=== PATIENT | female | born 1985 | race Caucasian/White ===

== ENCOUNTER 2016-11-02 15:33 | Emergency (ER) | payer SELFPAY ==
[~2016-11-02] VITALS: Wt 72.0 kg
[~2016-11-02 15:33] MED LIST: DOXY100T20 PO; GENT5DRO28 BOTH EYES
== END 2016-11-02 21:00 | disposition left against medical advice (07) ==
LOC: E/R 15:33
DX: Z53.21 Procedure and treatment not carried out due to patient leaving prior to being seen by health care provider (principal)

== ENCOUNTER 2018-06-27 08:26 | Emergency (ER) | END 2018-06-27 10:15 | disposition home or self-care (01) ==

== ENCOUNTER 2018-12-28 18:59 | Emergency (ER) | payer BC ==
[~2018-12-28] VITALS: Wt 109.2 kg
[~2018-12-28 18:59] MED LIST changes: +CEPH-443 PO; +CYCL10TA7 PO; +GUAI-637 PO; +NAPR-985 PO
[2018-12-28 19:07] VITALS: BP 142/98; PULSE 78; RESP 18
[2018-12-28] MEDS ORDERED: KETOROLAC 60 MG INJ IM STA (21:40)
[2018-12-28] MEDS ORDERED: TRAM50TA2 PO (21:51)
[2018-12-28] MEDS ORDERED: CYCL10TA7 PO (21:51)
[2018-12-28] MEDS ORDERED: IBUP800T48 PO (21:51)
--- NOTE | 2018-12-28 21:55 | ERD ---
ER Documentation Chief Complaint Chief Complaint LOWER LEFT BACK PAIN X'S 2 DAYS HPI 33-year-old female presents with right lower back pain for last 2 days. She has 3 children at home and may have started after taking care of her children. She denies any fall or history of trauma. She denies any bowel or bladder incontinence, fevers, deficits. She has a history of similar episodes. She did take some ibuprofen obtained from her friend which did help with the pain. Pain is described as 8 out of 10, without radiation worse with movement and decreased with rest. Pain is sharp in nature. ROS All systems reviewed and are negative except as per history of present illness. Medications Home Meds Active Scripts Cyclobenzaprine Hcl* (Cyclobenzaprine Hcl*) 10 Mg Tablet, 10 MG PO TID, #15 TAB Prov:CELESTE BUENO MD 12/28/18 Ibuprofen* (Motrin*) 800 Mg Tab, 800 MG PO Q6, #20 TAB Prov:CELESTE BUENO MD 12/28/18 Tramadol HCl (Tramadol HCl) 50 Mg Tablet, 50 MG PO Q4 PRN for PAIN, #15 TAB Prov:CELESTE BUENO MD 12/28/18 Guaifenesin* (Robitussin*) 100 Mg/5 Ml Syrup, 200 MG PO Q6H PRN for COUGH for 5 Days, ML Prov:ANTHONY ARTEAGA PA-C 06/27/18 Cyclobenzaprine Hcl* (Cyclobenzaprine Hcl*) 10 Mg Tablet, 10 MG PO QHS, #7 TAB Prov:ANTHONY ARTEAGA PA-C 06/27/18 Naproxen* (Naprosyn*) 500 Mg Tablet, 500 MG PO BID PRN for PAIN AND/OR INFLAMMATION, #30 TAB Prov:ANTHONY ARTEAGA PA-C 06/27/18 Cephalexin* (Keflex*) 500 Mg Capsule, 500 MG PO BID for 7 Days, CAP Prov:ANTHONY ARTEAGA PA-C 06/27/18 Doxycycline Hyclate* (Doxycycline Hyclate*) 100 Mg Tablet.dr, 100 MG PO BID for 7 Days, TAB Prov:CELESTE BUENO MD 05/01/16 Gentamicin Sulfate* (Gentamicin Sulfate* Ophth) 0.3% - 5 Ml Drops, 1 DROP BOTH EYES QID for 7 Days, EA Prov:CELESTE BUENO MD 05/01/16 Reported Medications [none] No Conflict Check 06/13/12 Allergies Allergies: Coded Allergies: No Known Allergies (Verified Allergy, Mild, 06/13/12) PMhx/Soc History of Surgery: Yes ( x3 and gall bladder removal) Anesthesia Reaction: No Hx Neurological Disorder: No Hx Respiratory Disorders: Yes (Hx asthma) Hx Cardiac Disorders: No Hx Psychiatric Problems: No Hx Miscellaneous Medical Probl: No Hx Alcohol Use: No Hx Substance Use: No Hx Tobacco Use: No FmHx Family History: No diabetes, No coronary disease, No other Physical Exam Vitals Vital Signs Date Temp Pulse Resp B/P (MAP) Pulse Ox O2 O2 Flow FiO2 Time Delivery Rate 12/28/18 98.7 78 18 142/98 98 19:07 (113) Physical Exam Const: No acute distress Head: Atraumatic Eyes: Normal Conjunctiva ENT: Normal External Ears, Nose and Mouth. Neck: Full range of motion. No meningismus. Resp: Clear to auscultation bilaterally Cardio: Regular rate and rhythm, no murmurs Abd: Soft, non tender, non distended. Normal bowel sounds Skin: No petechiae or rashes Back: No midline or flank tenderness. Tenderness right L4-5 paraspinous area with spasm. Positive straight leg raise mildly. Ext: No cyanosis, or edema Neur: Awake and alert Psych: Normal Mood and Affect Results 24 hrs Current Medications Medications Dose Sig/Adela Start Time Status Last (Trade) Ordered Route PRN Stop Time Admin Dose Reason Admin Ketorolac 60 mg ONCE STAT 12/28/18 DC Tromethamine IM 21:40 (Toradol) 12/28/18 21:41 Procedures/MDM Patient presents with signs and symptoms of right lumbar strain without signs of to suggest epidural abscess, cauda equina syndrome, fracture, dislocation, additional concerning signs or symptoms. Will treat with short course of tramadol, Flexeril, ibuprofen, instructions for exercises, primary care follow- up and return precautions. patient was administered Toradol 60 mg IM here in the ED. hCG negative. The patient was stable with no new complaints during the ER course. Clinically, there is no current evidence to suggest meningitis, sepsis, acute abdomen, pneumonia, stroke, acute coronary syndrome, pulmonary embolism, aortic dissection or any other emergent condition appearing to require further evaluation or hospitalization. Patient counseled regarding my diagnostic impression and care plan. Prior to discharge all questions answered. Pt agrees with treatment plan and understands strict return precautions. Pt is instructed to follow up with primary care provider within 24-48 hours. Precautionary instructions provided including instructions to return to the ER if not improving or for any worsening or changing symptoms or concerns. Disclaimer: Inadvertent spelling and grammatical errors are likely due to EHR/dictation software use and do not reflect on the overall quality of patient care. Also, please note that the electronic time recorded on this note does not necessarily reflect the actual time of the patient encounter. Departure Diagnosis: Primary Impression: Back pain Back pain location: low back pain Chronicity: acute Back pain laterality: right Sciatica presence: without sciatica Qualified Codes: M54.5 - Low back pain Condition: Stable Patient Instructions: Back Exercises, Lumbar, Back Pain (Acute Or Chronic) Referrals: DOCTOR,NOT ON STAFF (PCP) Additional Instructions: Recommend exercises at home. Recheck for fevers, new or worsening symptoms. CELESTE BUENO MD December 28, 2018 21:55
== END 2018-12-28 22:25 | disposition home or self-care (01) ==
LOC: FTE 18:59
DX: M54.5 Low back pain (principal); J45.909 Unspecified asthma, uncomplicated
CPT/HCPCS: 81025; 96372; 99284; J1885

== ENCOUNTER 2019-02-16 10:13 | Emergency (ER) | payer BC ==
[~2019-02-16] VITALS: Wt 98.0 kg
[~2019-02-16 10:13] MED LIST changes: +IBUP800T48 PO; +TRAM50TA2 PO
[2019-02-16 10:28] VITALS: BP 117/82; PULSE 82; RESP 18
[2019-02-16] MEDS ORDERED: HYDR50TA15 PO (12:29)
[2019-02-16] MEDS ORDERED: ALPR0.25 PO (12:31)
--- NOTE | 2019-02-16 12:32 | ERD ---
ER Documentation Chief Complaint Chief Complaint FEELS SOB WHEN LYING DOWN, CHEST TIGHTNESS, LEFT ANKLE SWOLLEN HPI 33-year-old female presents to ED complaining of shortness of breath and chest tightness at nighttime when sleeping. She reports this has been going on for about 6 months. She reports she falls asleep normally and wakes up gasping for air about once or twice a week. She denies any chest pain. She states this only happens at nighttime. She denies any asthma or COPD history but does report a history of anxiety. She denies any symptoms currently in the ED. Patient states she does have a PCP but has not seen him in over a year and she is interested in seeing him again soon. Patient also reports right ankle being swollen. She has concerns of a blood clot and is asking for an ultrasound to rule out DVT today. She denies shortness of breath in the ED. She denies swelling of her calf or calf pain. ROS All systems reviewed and are negative except as per history of present illness. Medications Home Meds Active Scripts Alprazolam* (Xanax*) 0.25 Mg Tablet, 0.25 MG PO Q8H PRN for ANXIETY, #7 TAB Prov:MAIKOL KANG PA-C 02/16/19 Hydroxyzine Hcl* (Hydroxyzine Hcl*) 50 Mg Tablet, 50 MG PO Q6H PRN for ANXIETY, #30 TAB Prov:MAIKOL KANG PA-C 02/16/19 Cyclobenzaprine Hcl* (Cyclobenzaprine Hcl*) 10 Mg Tablet, 10 MG PO TID, #15 TAB Prov:CELESTE BUENO MD 12/28/18 Ibuprofen* (Motrin*) 800 Mg Tab, 800 MG PO Q6, #20 TAB Prov:CELESTE BUENO MD 12/28/18 Tramadol HCl (Tramadol HCl) 50 Mg Tablet, 50 MG PO Q4 PRN for PAIN, #15 TAB Prov:CELESTE BUENO MD 12/28/18 Guaifenesin* (Robitussin*) 100 Mg/5 Ml Syrup, 200 MG PO Q6H PRN for COUGH for 5 Days, ML Prov:ANTHONY ARTEAGA PA-C 06/27/18 Cyclobenzaprine Hcl* (Cyclobenzaprine Hcl*) 10 Mg Tablet, 10 MG PO QHS, #7 TAB Prov:ANTHONY ARTEAGA Jada MASON 06/27/18 Naproxen* (Naprosyn*) 500 Mg Tablet, 500 MG PO BID PRN for PAIN AND/OR INFLAMMATION, #30 TAB Prov:PAMELAANTHONY Jada SCHMITT-C 06/27/18 Cephalexin* (Keflex*) 500 Mg Capsule, 500 MG PO BID for 7 Days, CAP Prov:ANTHONY ARTEAGAC 06/27/18 Doxycycline Hyclate* (Doxycycline Hyclate*) 100 Mg Tablet.dr, 100 MG PO BID for 7 Days, TAB Prov:CELESTE BUENO MD 05/01/16 Gentamicin Sulfate* (Gentamicin Sulfate* Ophth) 0.3% - 5 Ml Drops, 1 DROP BOTH EYES QID for 7 Days, EA Prov:CELESTE BUENO MD 05/01/16 Reported Medications [none] No Conflict Check 06/13/12 Allergies Allergies: Coded Allergies: No Known Allergies (Verified Allergy, Mild, 06/13/12) PMhx/Soc History of Surgery: Yes ( x3 and gall bladder removal) Anesthesia Reaction: No Hx Neurological Disorder: No Hx Respiratory Disorders: Yes (Hx asthma) Hx Cardiac Disorders: No Hx Psychiatric Problems: No Hx Miscellaneous Medical Probl: No Hx Alcohol Use: No Hx Substance Use: No Hx Tobacco Use: No Smoking Status: Never smoker FmHx Family History: No diabetes Physical Exam Vitals Vital Signs Date Temp Pulse Resp B/P (MAP) Pulse Ox O2 O2 Flow FiO2 Time Delivery Rate 02/16/19 98.1 82 18 117/82 99 10:28 (94) Physical Exam Const: No acute distress Head: Atraumatic Eyes: Normal Conjunctiva ENT: Normal External Ears, Nose and Mouth. Neck: Full range of motion. Resp: Clear to auscultation bilaterally Cardio: Regular rate and rhythm, Abd: Soft, non tender, non distended. Skin: No petechiae or rashes Back: No midline or flank tenderness Ext: slight edema right ankle/foot, negative Hoffmans, no tenderness Neur: Awake and alert Psych: Normal Mood and Affect Procedures/MDM ED COURSE: The patient was stable throughout ED course. I kept the patient informed of laboratory and diagnostic imaging results throughout the ED course. EKG: Read by Dr. Duran, attending physician. EKG shows normal sinus rhythm at a rate of 70 bpm. No arrhythmias, acute ST elevations or T wave changes were noted. DIAGNOSTIC IMAGING: Read by radiologist. PROCEDURE: US Lower extremity Venous. CLINICAL INDICATION: Right leg edema TECHNIQUE: Multiple sonographic images of the right lower extremity deep venous system was obtained utilizing grayscale, color-flow, compressive sonography and doppler imaging with augmentation. The images were reviewed on a PACS workstation. COMPARISON: None. FINDINGS: There is normal compressibility and flow within the right common femoral, femora l, posterior tibial, peroneal and popliteal veins. RPTAT: AA IMPRESSION: No sonographic evidence for deep venous thrombosis. .Dieudonne Henderson MD, Date Time Electronically viewed and signed by .Dieudonne Henderson MD, MD on 02/16/2019 12:17 PROCEDURES: none MEDICATIONS GIVEN: [None.] MEDICAL DECISION MAKING: Patient is a 33-year-old female reporting to the ED complaining of shortness of breath and chest tightness at night times x6 months. She reports a history of anxiety. She appears well in the ED exam and is in no apparent distress or any signs of respiratory failure. EKG was done showing normal sinus rhythm at a beat of 70 bpm. At this time I think the patient is suffering from anxiety. History and Physical along with other data not c/w emergent process including pneumonia, PE, abscess, pleural effusion or pneumothorax. Patient also has right ankle swelling and has concerns of DVT and is asked for an ultrasound which was unremarkable. Patient has a primary care provider that she is going to follow-up with in the next few days as reported by the patient. Patient was discharged with Xanax and hydroxyzine for anxiety. Vital signs were reviewed. Patient is afebrile. Patient was not hypoxic. Patient was hemodynamically stable. Patient was told to follow up with primary care for further care and management. PRESCRIPTION: Hydroxyzine, Xanax DISCHARGE: At this time, patient is stable for discharge and outpatient management. I have instructed the patient to follow-up with his/her primary care physician in 1-2 days. I have discussed with the patient the possibility of needing to see a specialist for further workup and imaging studies if symptoms persist. I have instructed the patient to promptly return to the ER for any new or worsening symptoms including increased pain, fever, nausea, vomiting, weakness or LOC. The patient and/or family expressed understanding of and agreement with this plan. All questions were answered. Home care instructions were provided. Disclaimer: Inadvertent spelling and grammatical errors are likely due to EHR/dictation software use and do not reflect on the overall quality of patient care. Also, please note that the electronic time recorded on this note does not necessarily reflect the actual time of the patient encounter. Departure Diagnosis: Primary Impression: Anxiety Additional Impression: Leg edema Condition: Fair Patient Instructions: Your Body's Response to Anxiety Referrals: [facility] YOU HAVE RECEIVED A MEDICAL SCREENING EXAM AND THE RESULTS INDICATE THAT YOU DO NOT HAVE A CONDITION THAT REQUIRES URGENT TREATMENT IN THE EMERGENCY DEPARTMENT. FURTHER EVALUATION AND TREATMENT OF YOUR CONDITION CAN WAIT UNTIL YOU ARE SEEN IN YOUR DOCTORS OFFICE WITHIN THE NEXT 1-2 DAYS. IT IS YOUR RESPONSIBILITY TO MAKE AN APPOINTMENT FOR FOLOW-UP CARE. IF YOU HAVE A PRIMARY DOCTOR --you should call your primary doctor and schedule an appointment IF YOU DO NOT HAVE A PRIMARY DOCTOR YOU CAN CALL OUR PHYSICIAN REFERRAL HOTLINE AT IF YOU CAN NOT AFFORD TO SEE A PHYSICIAN YOU CAN CHOSE FROM THE FOLLOWING [facility] [address] [facility]. [facility] [address] [facility] [address] [facility] [address] [facility] [address] [facility]. [facility]. [address] [facility]. [facility] YOU HAVE RECEIVED A MEDICAL SCREENING EXAM AND THE RESULTS INDICATE THAT YOU DO NOT HAVE A CONDITION THAT REQUIRES URGENT TREATMENT IN THE EMERGENCY DEPARTMENT. FURTHER EVALUATION AND TREATMENT OF YOUR CONDITION CAN WAIT UNTIL YOU ARE SEEN IN YOUR DOCTORS OFFICE WITHIN THE NEXT 1-2 DAYS. IT IS YOUR RESPONSIBILITY TO MAKE AN APPOINTMENT FOR FOLOW-UP CARE. IF YOU HAVE A PRIMARY DOCTOR --you should call your primary doctor and schedule and appointment IF YOU DO NOT HAVE A PRIMARY DOCTOR YOU CAN CALL OUR PHYSICIAN REFERRAL HOTLINE AT . IF YOU CAN NOT AFFORD TO SEE A PHYSICIAN YOU CAN CHOSE FROM THE FOLLOWING [facility] INSTITUTIONS: [facility] [address] [place] [address] [facility] [address] [place] [address] [facility] [address] [place] [address] Additional Instructions: Call your primary care doctor TOMORROW for an appointment during the next 1-2 days.See the doctor sooner or return here if your condition worsens before your appointment time. MAIKOL KANG PA-C Feb 16, 2019 12:32
== END 2019-02-16 13:32 | disposition home or self-care (01) ==
LOC: FTE 10:13
DX: F41.9 Anxiety disorder, unspecified (principal); R60.0 Localized edema; J45.901 Unspecified asthma with (acute) exacerbation
CPT/HCPCS: 93005; 93971